=== PATIENT | female | born 1985 | race Caucasian/White ===

== ENCOUNTER → 2016-12-25 | Outpatient (CLI) | payer OTHER | LOC: FIMAGING 16:18 | DX: J01.01 Acute recurrent maxillary sinusitis (principal) ==

== ENCOUNTER 2019-02-23 23:20 | Emergency (ER) | payer MEDICAID, OTHER ==
[2019-02-23] MEDS ORDERED: LORazepam 2 MG/ML INJ IVP ONE (23:39)
[2019-02-23] MEDS ORDERED: NS 1,000 ML IV ONE (23:39)
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
[2019-02-24 00:01] LABS: PLATELET COUNT 693 10^3/uL (150-400)
[2019-02-24] MEDS ORDERED: CEPACOL LOZENGE PO ONE ×2 (01:01)
[2019-02-24 05:50] VITALS: BP 121/74
== END 2019-02-24 05:50 | disposition home or self-care (01) ==
DX: T58.01XA Toxic effect of carbon monoxide from motor vehicle exhaust, accidental (unintentional), initial encounter (principal); J01.90 Acute sinusitis, unspecified; F17.210 Nicotine dependence, cigarettes, uncomplicated; E86.9 Volume depletion, unspecified; F32.9 Major depressive disorder, single episode, unspecified; F41.9 Anxiety disorder, unspecified; Z88.2 Allergy status to sulfonamides